=== PATIENT | female | born 1980 | race Caucasian/White ===

== ENCOUNTER 2017-02-14 14:53 | Emergency (ER) | payer OTHER ==
[2017-02-14] MEDS ORDERED: Morphine 10 MG/ML Syringe IM ONE (15:26)
[2017-02-14] MEDS ORDERED: hydrOXYzine HCl 50 MG/ML SDV IM ONE (15:26)
[2017-02-14] MEDS ORDERED: Sodium Phosphate,Monobasic/Sodium Phosphate,Dibasic Enema 133 ML Bottle RECTAL ONE (15:26)
[2017-02-14] MEDS ORDERED: Ketorolac 30 MG/ML SDV IVPUSH ONE (16:28)
[2017-02-14 17:38] VITALS: BP 112/42
[2017-02-14] MEDS ORDERED: Lactated Ringers 1,000 ML IV SCH (17:45)
--- NOTE | 2017-02-14 22:16 | ER ---
DATE SEEN: 02/14/2017 CHIEF COMPLAINT: Abdominal pain. HISTORY OF PRESENT ILLNESS: A 36-year-old female complaining of sudden onset abdominal pain, it is mostly in the right pelvic area severe and initially felt like cramps and tried some Ex-Lax with no relief. Her last period was 03 of February, but she had spotting today. REVIEW OF SYSTEMS: Mild nausea, but no vomiting. No fever. No urinary symptoms. PAST SURGICAL HISTORY: C-sections x3. PHYSICAL EXAMINATION: VITAL SIGNS: Blood pressure is normal. Temp 93 and pulse is 90. EARS, NOSE, AND THROAT: Negative. ABDOMEN: Soft with tenderness in the right lower quadrant in the suprapubic area. CHEST: Clear. LABORATORY DATA: White cell count 13.2, hemoglobin is 11.3. Urine is positive. Ultrasound, the instrumentation technician saw a possible 7-week tubal . IMPRESSION: Cervix with blood in the cul-de-sac with possible ectopic . PLAN: My plan is to transfer to [place]. I started an IV line and gave a bolus of LR. I spoke with Dr. Hoang for transfer. I feel the patient is hemodynamically stable with normal vital signs. The pain seems to have improved some. I also reviewed an ultrasound that she had back in March that had similar presentation and she informed me that she had possible tubal in October. At this time, I am not sure that I am certain of the diagnosis of a ruptured ectopic and I feel the patient would be better served in [place]. I spoke with Dr. Peres who advised transfer to [place]. /[id number] LAKISHA/CHRISTAL
--- NOTE | 2017-02-16 11:35 | US ---
INDICATION: Positive test. OB ULTRASOUND FIRST TRIMESTER: Multiple ultrasonic images were obtained 2016 and revealed evidence of an ectopic in the left pelvis adjacent to the uterus and posterior to the uterus with what appears to be a pole compatible with 7 weeks 3 days gestational age. A yolk sac is noted. What appears to be amniotic fluid is present. The uterus appeared fairly normal, as did the relatively prominent echogenic endometrial cavity echo. No gross free fluid was seen. IMPRESSION: Findings are compatible with an ectopic with a gestational age of approximately 7 weeks 3 days. No heart motion was noted, however. MTDD
== END 2017-02-14 18:30 ==
LOC: FB.ED 14:53
DX: N88.8 Other specified noninflammatory disorders of cervix uteri (principal)
CPT/HCPCS: 36415; 76801; 80053; 81001; 81025; 84702; 85025; 96361; 96372; 96374; 99284; J1885; J2270; J3410; J7120

== ENCOUNTER 2021-09-25 11:12 | Emergency (ER) | payer OTHER ==
[2021-09-25] MEDS ORDERED: Ketorolac 30 MG/ML SDV IM ONE (11:18)
[2021-09-25] MEDS ORDERED: Acetaminophen/oxyCODONE 325-5 MG Tab PO STA (12:12)
== END 2021-09-25 14:10 | disposition home or self-care (01) ==
LOC: FB.ED 11:12
DX: M53.3 Sacrococcygeal disorders, not elsewhere classified (principal); T50.Z95A Adverse effect of other vaccines and biological substances, initial encounter
CPT/HCPCS: 36415; 81001; 85025; 96372; 99283; A9270; J1885